=== PATIENT | female | born 1990 | race Caucasian/White ===

== ENCOUNTER 2017-04-30 09:50 | Emergency (ER) | payer OTHER ==
[2017-04-30] MEDS ORDERED: Ondansetron 4 MG/2 ML SDV IVPUSH ONE (10:23)
[2017-04-30] MEDS ORDERED: Sodium Chloride 0.9% 1,000 ML IV ONE (10:23)
[2017-04-30] MEDS ORDERED: Morphine 2 MG/ML Syringe IVPUSH ONE (10:24)
--- NOTE | 2017-04-30 10:32 | EDM.PDOC ---
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 Described it as sharp generalized abdominal pain which has been constant since onset. Pain is crampy and occasionally tight and sharp in nature with no obvious aggravating and relieving factors and no none radiations. Rates pain as 9/10. This morning, she felt severe tightness in the upper abdomen and below the rib cage. No chest pain , SOB, Fever or urinary symptoms. Patient presented to the ER on account of worsening of symptoms. Onset: Other (started 2 days ago) Duration: Day(s):, Getting Worse Location: Reports: Abdomen Quality: Reports: Sharp, Stabbing Improves with: Reports: None Worsens with: Reports: None Associated Symptoms: Reports: No Other Symptoms, Nausea/Vomiting Bilateral Abdominal Pain Score (Numeric/FACES): 2 - Related Data Allergies Allergy/AdvReac Type Severity Reaction Status Date / Time No Known Allergies Allergy Verified 04/30/17 10:14 Home Meds: Home Meds Cetirizine [ZyrTEC] 10 mg PO BID 04/30/17 [History] Hydrocodone/Acetaminophen [[place] 5-325 Tablet] 1 each PO .Q6H PRN #20 tablet [Rx] Levofloxacin [Levaquin] 250 mg PO DAILY #7 tablet 04/30/17 [Rx] Ondansetron [Zofran] 4 mg PO Q6H PRN #20 tab 04/30/17 [Rx] Ranitidine HCl [Zantac] 300 mg PO BID 04/30/17 [History] Past Medical History - Past Health History Medical/Surgical History: Denies Medical/Surgical History Social & Family History - Tobacco Use Smoking Status *Q: Never Smoker - Caffeine Use Caffeine Use: Reports: Coffee - Recreational Drug Use Recreational Drug Use: No ED ROS GENERAL - Review of Systems Review Of Systems: ROS reveals no pertinent complaints other than HPI. ED EXAM, GI/ABD - Physical Exam Exam: See Below Exam Limited By: No Limitations General Appearance: Alert, WD/WN, No Apparent Distress Eyes: Bilateral: EOMI Ears: Normal External Exam, Normal Canal, Hearing Grossly Normal, Normal TMs Nose: Normal Inspection, Normal Mucosa Throat/Mouth: Normal Inspection, Normal Lips, Normal Teeth, Normal Oropharynx Head: Atraumatic, Normocephalic Neck: Normal Inspection, Supple, Non-Tender, Full Range of Motion Respiratory/Chest: No Respiratory Distress, Lungs Clear, Normal Breath Sounds, No Accessory Muscle Use, Chest Non-Tender Cardiovascular: Normal Peripheral Pulses, Regular Rate, Rhythm, No Edema, No Gallop, No JVD, No Murmur GI/Abdominal: Normal Bowel Sounds, No Organomegaly, No Distention, No Abnormal Bruit, No Mass, Pelvis Stable, Tenderness, Other (Vague generalized tenderness with voluntary guarding) Back Exam: Normal Inspection, Full Range of Motion Extremities: Normal Inspection, Normal Range of Motion, Non-Tender, No Pedal Edema, Normal Capillary Refill Neurological: Alert, Oriented, CN II-XII Intact, Normal Cognition, Normal Gait Psychiatric: Normal Affect, Normal Mood Skin Exam: Warm, Dry, Intact, Normal Color, No Rash Course - Vital Signs Last Recorded V/S: Last Vital Signs Temp 36.7 C 04/30/17 09:55 Pulse 84 04/30/17 09:55 Resp 20 04/30/17 09:55 BP 112/62 04/30/17 09:55 Pulse Ox 100 04/30/17 09:55 - Orders/Labs/Meds Orders: Active Orders 24 hr Category Date Time Status Abdomen Ltd [US] Stat Exams 04/30/17 13:10 Ordered Abdomen Pelvis w Cont [CT] Stat Exams 04/30/17 10:22 Taken Labs: Laboratory Tests 04/30/17 04/30/17 04/30/17 Range/Units 10:20 11:07 11:07 WBC 8.7 (4.5-12.0) X10-3/uL RBC 4.64 (3.23-5.20) x10(6)uL Hgb 13.7 (11.5-15.5) g/dL Hct 40.6 (30.0-51.3) % MCV 87.6 (80-96) fL MCH 29.5 (27.7-33.6) pg MCHC 33.7 (32.2-35.4) g/dL RDW 12.0 (11.5-15.5) % Plt Count 351 (125-369) X10(3)uL MPV 7.6 (7.4-10.4) fL Neut % (Auto) 70.1 (46-82) % Lymph % (Auto) 21.5 (13-37) % [place] % (Auto) 6.2 (4-12) % Eos % (Auto) 2 (1.0-5.0) % Baso % (Auto) 1 (0-2) % Neut # (Auto) 6.2 (1.6-8.3) # Lymph # (Auto) 1.9 (0.6-5.0) # [place] # (Auto) 0.5 (0.0-1.3) # Eos # (Auto) 0.1 (0.0-0.8) # Baso # (Auto) 0.0 (0.0-0.2) # Sodium 135 (135-145) mmol/L Potassium 4.3 (3.5-5.3) mmol/L Chloride 102 (100-110) mmol/L Carbon Dioxide 25 (23-29) mmol/L BUN 15 (5-20) mg/dL Creatinine 0.7 (0.6-1.3) mg/dL Est Cr Clr Drug Dosing 97.17 mL/min Estimated GFR (MDRD) > 60 (>60) BUN/Creatinine Ratio 21.4 H (9-20) Glucose 104 (80-116) mg/dL Calcium 9.6 (8.6-10.2) mg/dL Total Bilirubin 0.5 (0.1-1.3) mg/dL AST 23 (5-27) IU/L ALT 16 (14-26) IU/L Alkaline Phosphatase 79 (56-112) IU/L Total Protein 8.5 H (6.0-8.0) g/dL Albumin 5.0 (3.5-5.2) g/dL Globulin 3.5 g/dL Albumin/Globulin Ratio 1.4 Amylase 60 (28-100) U/L Urine Color Yellow (YELLOW) Urine Appearance Slightly cloudy (CLEAR) Urine pH 5.0 (5.0-6.5) Ur Specific [place] 1.020 (1.010-1.025) Urine Protein Negative (NEGATIVE) mg/dL Urine Glucose (UA) Normal (NEGATIVE) mg/dL Urine Ketones Negative (NEGATIVE) mg/dL Urine Occult Blood Negative (NEGATIVE) Urine Nitrite Negative (NEGATIVE) Urine Bilirubin Negative (NEGATIVE) Urine Urobilinogen Normal (NEGATIVE) mg/dL Ur Leukocyte Esterase Large H (NEGATIVE) Urine RBC 0-5 (0) Urine WBC 5-10 (0) Ur Epithelial Cells Moderate Urine Bacteria Many H (NS) Meds: Medications Discontinued Medications Generic Name Dose Route Start Last Admin Trade Name Freq PRN Reason Stop Dose Admin Sodium Chloride 1,000 mls @ 1,000 mls/hr 04/30/17 10:23 04/30/17 11:30 Normal Saline IV 04/30/17 11:22 1,000 mls/hr .BOLUS ONE Administration Iopamidol 67 ml 04/30/17 12:29 04/30/17 12:45 Isovue-370 (76%) IV 04/30/17 12:30 67 ml ONETIME ONE Administration Lorazepam 1 mg 04/30/17 11:01 04/30/17 11:29 Ativan IVPUSH 04/30/17 11:02 1 mg ONETIME ONE Administration Morphine Sulfate 2 mg 04/30/17 10:24 04/30/17 13:37 Morphine IVPUSH 04/30/17 10:25 Not Given ONETIME ONE Morphine Sulfate 4 mg 04/30/17 13:11 04/30/17 13:43 Morphine IVPUSH 04/30/17 13:12 4 mg ONETIME ONE Administration Ondansetron HCl 4 mg 04/30/17 10:23 04/30/17 13:40 Zofran IVPUSH 04/30/17 10:24 Not Given ONETIME ONE - Re-Assessments/Exams Free Text/Narrative Re-Assessment/Exam: 04/30/17 13:[address] results reviewed. Pain controlled CT revealed GB wall thickening. RUQ U/S ordered - U/S science technician not on duty today. Patient will pursue this as an outpatient. Prescription for [place] and Zofran ordered. Discharged in stable condition. Indications for emergent return were discussed and no Learning barriers encountered. Departure - Departure Time of Disposition: 13:49 Disposition: Home, Self-Care 01 Condition: Good Clinical Impression: UTI (urinary tract infection) Abdominal pain Qualifiers: Abdominal location: generalized Qualified Code(s): R10.84 - Generalized abdominal pain - Discharge Information Prescriptions: Hydrocodone/Acetaminophen [[place] 5-325 Tablet] 1 each PO .Q6H PRN #20 tablet PRN Reason: Pain Levofloxacin [Levaquin] 250 mg PO DAILY #7 tablet Ondansetron [Zofran] 4 mg PO Q6H PRN #20 tab PRN Reason: Nausea Instructions: Abdominal Pain, Adult, [id number], Urinary Tract Infection, Adult Referrals: Taym Foley [employer] WORKER [Primary Care Provider] - (Please consider outpatient RUQ ultrasound.) Forms: ED Department Discharge Additional Instructions: Follow with PCP in 3- 5 days for outpatient RUQ Ultrasound [place] for pain Zofran for nausea/vomiting Levaquin for UTI Return if symptoms worsen Call your Physician or Return to Emergency Department if: * Your condition worsens in any way. * You develop fever greater than 100.4. * You have vomitting that does not stop with medications. * You have pain that is not controlled with medications. - My Orders Last 24 Hours: My Active Orders 04/30/17 10:22 Abdomen Pelvis w Cont [CT] Stat 04/30/17 13:10 Abdomen Ltd [US] Stat - Assessment/Plan Last 24 Hours: My Active Orders 04/30/17 10:22 Abdomen Pelvis w Cont [CT] Stat 04/30/17 13:10 Abdomen Ltd [US] Stat
[2017-04-30] MEDS ORDERED: LORazepam 2 MG/ML MDV IVPUSH ONE (11:01)
[2017-04-30] MEDS ORDERED: Iopamidol 755 Mg/ML 75 ML Bottle IV ONE (12:29)
[2017-04-30] MEDS ORDERED: Morphine 4 MG/ML Syringe IVPUSH ONE (13:11)
[2017-04-30 14:07] VITALS: BP 118/66
--- NOTE | 2017-04-30 14:47 | CT ---
INDICATION: Upper abdominal crampy tight and sharp pain x2 days. CT ABDOMEN AND PELVIS WITH CONTRAST: Spiral 2.5-mm axial sections were obtained through the abdomen and pelvis with 67 mL Isovue-370 at 1.9 mL per second, with sagittal and coronal reconstructions, 04/30/2017. No comparisons. Total Exam DLP = 577.58 mGy-cm. The lower lung villalpando and pleural spaces visualized appeared normal. The gallbladder wall may be slightly thickened. No definite pericholecystic fluid was seen, however. This should be correlated clinically. Gallbladder ultrasound may be helpful for further evaluation, as clinically necessary. The common bile duct was not enlarged. The pancreas, spleen, liver, kidneys, and adrenals appeared normal. The urinary bladder appeared normal. An intrauterine device is noted in the uterus. What appears to be an involuting follicular cyst is noted at what appears to be the right ovary, with multiple follicles present. A trace amount of posterior cul-de-sac fluid may be present. This likely is physiologic. What appears to be the appendix appeared normal. No evidence of bowel obstruction was suggested. Along the inferior aspect of the cecum, there is suggestion of a minimal amount of free fluid. This appearance is indeterminate as to its etiology. It does not have the appearance of a definite inflammatory process, as no fat stranding is seen in that area. It could represent some minimal ovarian cyst fluid that is residual in that area. IMPRESSION: 1. Minimal fluid at the inferior aspect of the cecum of questionable significance could possibly represent physiologic ovarian cyst fluid, as there does appear to be an involuting cyst at the right ovary and some very minimal fluid in the posterior cul-de-sac. 2. Intrauterine device in place. 3. Question the possibility of some minimal thickening of the wall of the gallbladder. No definite calculi were visualized. This should be correlated clinically. Depending upon clinical necessity, additional examination such as ultrasound of the gallbladder may be helpful. CT PELVIS: Examination of the pelvis was obtained by CT, as noted above, with what appears to be an involuting right ovarian cyst and a tiny amount of free fluid in the posterior cul-de-sac, as well as some minimal fluid at the base of the cecum which may be related to that involuting right ovarian cyst. Intrauterine device is also noted in place. Report was called to Dr. Elena at 1304 hours, 04/30/2017. [facility]
== END 2017-04-30 14:05 | disposition home or self-care (01) ==
LOC: FB.ED 09:50
DX: N39.0 Urinary tract infection, site not specified (principal); Z79.899 Other long term (current) drug therapy
CPT/HCPCS: 74177; 80053; 81001; 82150; 85025; 96361; 96374; 96375; 99284; J2060; J2270; J7040; Q9967